=== PATIENT | male | born 2000 | race Caucasian/White ===

== ENCOUNTER → 2023-07-08 14:10 | Outpatient (REF) | payer BC, SELFPAY | LOC: PAVMRI 14:10 | PROVIDERS: ATTENDING PHYSICIAN Psychiatry & Neurology Neurology; FAMILY PHYSICIAN Physician Assistant Medical | DX: R51.0 Headache with orthostatic component, not elsewhere classified (principal); R93.0 Abnormal findings on diagnostic imaging of skull and head, not elsewhere classified; G37.9 Demyelinating disease of central nervous system, unspecified | CPT/HCPCS: 70553; 72156; A9575 ==

== ENCOUNTER → 2023-07-09 14:04 | Outpatient (REF) | payer BC, SELFPAY | LOC: PAVMRI 14:04 | PROVIDERS: ATTENDING PHYSICIAN Psychiatry & Neurology Neurology; FAMILY PHYSICIAN Physician Assistant Medical | DX: G37.9 Demyelinating disease of central nervous system, unspecified (principal) | CPT/HCPCS: 72157; A9575 ==